=== PATIENT | female | born 1980 | race Caucasian/White ===

== ENCOUNTER 2016-09-04 13:58 | Emergency (ER) | payer OTHER ==
[2016-09-04 14:16] VITALS: RESP 16
[2016-09-04] MEDS ORDERED: ONDANSETRON 4 MG/2 ML VIAL IVP ONE (14:40)
[2016-09-04] MEDS ORDERED: NS 500 ML IV ONE (14:40)
[2016-09-04] MEDS ORDERED: DEXAMETHASONE 10 MG/ML VIAL IVP ONE (14:59)
[2016-09-04] MEDS ORDERED: HYDROCOD/APAP 7.5/325 IN 15ML UDCUP PO ONE (14:59)
[2016-09-04] MEDS ORDERED: NS 1,000 ML IV ONE ×2 (14:59→16:16)
--- NOTE | 2016-09-04 15:03 | EDPHY ---
H & P Time Seen by Provider: 09/04/16 14:50 HPI/ROS: CHIEF COMPLAINT: Nausea vomiting diarrhea HISTORY OF PRESENT ILLNESS: This is a 36-year-old female presenting to the emergency department complaining of worsening sore throat now with nausea vomiting diarrhea onset around noon today. Patient states she was seen at [facility] yesterday was diagnosed with strep placed on Penicillin, tolerated 2 doses yesterday evening, to doses before the nausea vomiting diarrhea started. patient states has not been able to tolerate any p.o. intake since around 02 22, intermittent fever with chills. REVIEW OF SYSTEMS: Constitutional: fever chills. decreased p.o. intake Eyes: No discharge. no blurred vision ENT: sore throat. Cardiovascular: No chest pain, no palpitations. Respiratory: No cough, no shortness of breath. Gastrointestinal: No abdominal pain. nausea vomiting diarrhea onset around noon today Genitourinary: No urinary discomfort Musculoskeletal: No back pain. Skin: No rashes. Neurological: No headache. Smoking Status: Never smoked Physical Exam: General Appearance: Alert, no distress. HEENT: Normocephalic atraumatic Pupils equal and round no pallor or injection. TMs normal bilaterally. tonsillar hypertrophy with exudate and erythemic Mucous membranes dry Respiratory: There are no retractions, lungs are clear to auscultation. Cardiovascular: Regular rate and rhythm. Gastrointestinal: Abdomen is soft and nontender, no masses, bowel sounds normal. Neurological: no focal deficits Skin: Warm and dry, no rashes. Musculoskeletal: Neck is supple, anterior cervical lymphadenopathy tender on palpation Extremities are symmetrical, full range of motion. Constitutional: Initial Vital Signs Temperature (C) 36.5 C 09/04/16 14:12 Heart Rate 95 09/04/16 14:12 Respiratory Rate 16 09/04/16 14:12 Blood Pressure 91/67 L 09/04/16 14:12 O2 Sat (%) 99 09/04/16 14:12 O2 Delivery Mode Room Air Allergies/Adverse Reactions: No Known Allergies Allergy (Unverified 09/04/16 14:12) Home Medications: Medication Instructions Recorded Azithromycin 500 mg PO DAILY #5 tablet 09/04/16 CeleBREX 09/04/16 Ondansetron Odt [Zofran Odt 4 mg 4 mg PO Q4 #10 tab 09/04/16 (*)] Pen Vk 500mg (*) 09/04/16 Wellbutrin 100mg (*) 09/04/16 Medical Decision Making ED Course/Re-evaluation: discussed ED plan of care: CBC, BMP, normal saline, Zofran, Decadron, will re- evaluate patient 1515: Patient re-evaluation-->NAD, well-appearing reports just having some epigastric tenderness no nausea at this time. 1615: patient's reports still feeling dehydrated, with some epigastric discomfort. additional normal saline bolus given. 1715: Patient re-evaluation--->NAD, well-appearing no nausea or vomiting. 1730: Discharge home--->stable, well appearing, no n/v tolerating PO intake. Discussed discharge instructions with pt. Differential Diagnosis: other differential diagnosis considered but not limited to gastroenteritis, nausea vomiting due to penicillin and sepsis - Data Points Laboratory Results: Laboratory Results 09/04/16 14:45 09/04/16 14:45 Medications Given: Discontinued Medications Hydrocodone Bitart/Acetaminophen (Hycet Oral Liquid) 15 ml PO EDNOW ONE Stop: 09/04/16 15:00 Last Admin: 09/04/16 15:07 Dose: 15 ml Dexamethasone (Decadron Injection) 10 mg IVP EDNOW ONE Stop: 09/04/16 15:00 Last Admin: 09/04/16 15:07 Dose: 10 mg Famotidine (Pepcid) 20 mg PO EDNOW ONE Stop: 09/04/16 16:30 Last Admin: 09/04/16 16:31 Dose: 20 mg Sodium Chloride (Ns) 500 mls @ 1,000 mls/hr IV ONCE ONE PRN Reason: Protocol Stop: 09/04/16 15:09 Last Admin: 09/04/16 14:46 Dose: 500 mls Sodium Chloride (Ns) 1,000 mls @ 0 mls/hr IV ONCE ONE PRN Reason: Wide Open Stop: 09/04/16 15:00 Last Admin: 09/04/16 15:07 Dose: 1,000 mls Ceftriaxone Sodium/Dextrose (Rocephin 1 Gm (Premix)) 50 mls @ 100 mls/hr IV EDNOW ONE PRN Reason: Protocol Stop: 09/04/16 16:44 Last Admin: 09/04/16 16:30 Dose: 50 mls Sodium Chloride (Ns) 1,000 mls @ 0 mls/hr IV ONCE ONE PRN Reason: Wide Open Stop: 09/04/16 16:17 Last Admin: 09/04/16 16:30 Dose: 1,000 mls Ondansetron HCl (Zofran) 4 mg IVP EDNOW ONE Stop: 09/04/16 14:41 Last Admin: 09/04/16 14:47 Dose: 4 mg Departure - Departure Disposition: Home, Routine, Self-Care Clinical Impression: Nausea, vomiting and diarrhea, Acute streptococcal pharyngitis Condition: Good Instructions: Acute Nausea and Vomiting (ED) Additional Instructions: 1. Discontinue penicillin I have given you a prescription for azithromycin, he also received Rocephin here in the emergency department 2. I have also given a prescription for medicine for nausea take that as needed 3. ibuprofen 600 mg every 6-8 hours, or Tylenol 500-1000mg every 6 hours as needed 4. increase fluid intake, rest 5. after you been on antibiotics for 24 hours throw away your old toothbrush Referrals: NILDA BRANDT [Other] - As per Instructions Prescriptions: Azithromycin 500 mg PO DAILY #5 tablet Ondansetron Odt [Zofran Odt 4 mg (*)] 4 mg PO Q4 #10 tab
[2016-09-04 15:17] LABS: % IMMATURE GRANULYOCYTES 0.5 % (0.0-1.1); ABSOLUTE IMMATURE GRANULOCYTES 0.05 10^3/uL (0.00-0.10); ADD DIFF? NO; ADD MORPH? NO; ADD SCAN? NO; ATYPICAL LYMPHOCYTE FLAG 0 (0-99); FRAGMENT RBC FLAG 0 (0-99); HEMATOCRIT 37.9 % (38.0-47.0); HEMOGLOBIN 12.7 g/dL (12.6-16.3); LEFT SHIFT FLG 70 (0-99); LIPEMIA HEMOLYSIS FLAG 80 (0-99); MEAN CELL HEMOGLOBIN 30.8 pg (27.9-34.1); MEAN CELL HEMOGLOBIN CONCENTR. 33.5 g/dL (32.4-36.7); MEAN PLATELET VOLUME 9.4 fL (8.7-11.7); PLATELET CLUMPS FLAG 0 (0-99); PLATELET COUNT 210 10^3/uL (150-400); RED BLOOD CELL COUNT 4.12 10^6/uL (4.18-5.33); RED CELL DISTRIBUTION WIDTH 12.1 % (11.5-15.2)
[2016-09-04 15:26] LABS: ANION GAP 14 mEq/L (8-16); CALCIUM 9.1 mg/dL (8.5-10.4); CARBON DIOXIDE 21 mEq/l (22-31); CHLORIDE 101 mEq/L (97-110); CREATININE 0.8 mg/dL (0.6-1.0); GLOMERULAR FILTRATION RATE > 60; GLUCOSE 119 mg/dL (70-100); POTASSIUM 3.8 mEq/L (3.5-5.2); SODIUM 136 mEq/L (134-144)
[2016-09-04] MEDS ORDERED: FAMOTIDINE 20 MG TAB PO ONE (16:29)
[2016-09-04 17:35] VITALS: BP 101/62; PULSE 93; TEMP 98.2; O2SAT 94
== END 2016-09-04 17:47 | disposition home or self-care (01) ==
DX: R19.7 Diarrhea, unspecified (principal); J02.0 Streptococcal pharyngitis; E86.9 Volume depletion, unspecified
CPT/HCPCS: 96365; J0696; J1100; J2405